=== PATIENT | female | born 1945 | race Caucasian/White ===

== ENCOUNTER → 2016-09-18 | Outpatient (CLI) | payer MEDICARE, OTHER | END | disposition home or self-care (01) | LOC: GMAM 11:04 | PROVIDERS: ATTEND Family Medicine | DX: E03.9 Hypothyroidism, unspecified (principal); I10 Essential (primary) hypertension; N39.0 Urinary tract infection, site not specified ==

== ENCOUNTER → 2016-09-29 | Outpatient (CLI) | payer MEDICARE, OTHER | END | disposition home or self-care (01) | LOC: GMAM 17:19 | PROVIDERS: ATTEND Family Medicine | DX: N39.0 Urinary tract infection, site not specified (principal) ==

== ENCOUNTER → 2016-10-12 | Outpatient (CLI) | payer MEDICARE, OTHER | END | disposition home or self-care (01) | LOC: GMAM 13:58 | PROVIDERS: ATTEND Family Medicine | DX: N39.0 Urinary tract infection, site not specified (principal) ==

== ENCOUNTER → 2017-06-29 | Outpatient (CLI) | payer MEDICARE, OTHER ==
--- NOTE | 2017-07-02 10:15 | MAM ---
EXAM DESCRIPTION: 3D Screening BILATERAL : Digital Mammography. CLINICAL HISTORY: 72 years Female SCREENING . No complaints. No family history breast cancer. Postmenopausal. Bilateral cyst aspiration. No HRT. COMPARISON: 2-D digital screening bilateral study 07/15/2015 and 05/22/2013. No prior reports available. Reports from prior examinations also reviewed. Report from prior examination also reviewed. TECHNIQUE: Bilateral CC and MLO projection full-field images, 3-D tomosynthesis digital mammographic technique. Also bilateral synthesized CC/ MLO full-field images. CAD not utilized. FINDINGS: The breast parenchymal density pattern is: Scattered areas of fibroglandular density. No skin thickening or nipple retraction bilateral solitary microcalcifications. Stable focal asymmetry in the lateral mid third of the left breast. No focal, stellate mass or density, focal asymmetry , and no suspicious microcalcifications bilaterally. Stable mammograms compared to prior study, taking into account differences in mammographic technique IMPRESSION: BI-RADS CATEGORY: 2 - BENIGN FINDINGS. FOLLOW UP: Routine digital bilateral screening, one year interval from June 2017. Written communication explaining the IMPRESSION and follow-up, will be mailed to the patient and referring health care provider. According to the [employer], yearly mammograms are recommended starting at age 40 and continuing as long as a woman is in good health. Any breast change noted on a breast self-exam should be reported promptly to the patient's healthcare provider. Breast MRI is recommended for women with an approximately 20-25% or greater lifetime risk of breast cancer, including women with a strong family history of breast or ovarian cancer and women who have been treated for Hodgkin's disease. A negative mammographic report should not delay tissue diagnosis in patients with significant clinical history or physical findings. Extremely dense breast tissue limits the sensitivity of digital mammography. Electronically signed by: Perez Elam MD 07/02/2017 10:14 AM PHYSICIAN/ALLERGY/IMMUNOLOGY
== END ==
LOC: MAMMO 15:21
PROVIDERS: ATTEND Family Medicine
DX: Z12.31 Encounter for screening mammogram for malignant neoplasm of breast (principal); N39.0 Urinary tract infection, site not specified; E03.9 Hypothyroidism, unspecified
CPT/HCPCS: 77063; 84439; 84443; 87086; G0202

== ENCOUNTER → 2017-10-26 | Outpatient (CLI) | payer MEDICARE, OTHER | END | disposition home or self-care (01) | LOC: GMAM 14:24 | PROVIDERS: ATTEND Family Medicine | DX: E03.9 Hypothyroidism, unspecified (principal) ==

== ENCOUNTER → 2017-11-02 | Outpatient (CLI) | payer MEDICARE, OTHER | END | disposition home or self-care (01) | LOC: GMAM 14:30 | PROVIDERS: ATTEND Family Medicine | DX: N39.0 Urinary tract infection, site not specified (principal) ==

== ENCOUNTER → 2018-06-30 | Outpatient (CLI) | payer MEDICARE, OTHER | LOC: GMAM 11:34 | PROVIDERS: ATTEND Family Medicine | DX: E03.9 Hypothyroidism, unspecified (principal) ==

== ENCOUNTER → 2018-07-05 | Outpatient (CLI) | payer MEDICARE, OTHER ==
--- NOTE | 2018-07-06 09:32 | US ---
EXAM DESCRIPTION: Pelvic,Non-OB CLINICAL HISTORY: 73 years Female, PELVIC PAIN COMPARISON: None. TECHNIQUE: Ultrasound of the pelvis was performed transabdominally. FINDINGS: The uterus is surgically absent. Right ovary measures 2.4 x 1.7 x 1.6 cm on the left ovary measures 1.9 x 1 x 1.9 cm. No evidence of free fluid. IMPRESSION: Uterus is surgically absent. Bilateral ovaries appear grossly normal. Electronically signed by: Arielle Toro MD 07/06/2018 9:31 AM [facility]
--- NOTE | 2018-07-06 16:32 | MAM ---
EXAM DESCRIPTION: 3D Screening BILATERAL : Digital Mammography. CLINICAL HISTORY: 73 years Female SCREEN . No complaints. No personal or family history of breast cancer. Childbirth. Postmenopausal 31 years. No HRT. Cyst aspiration right benign.. Lifetime risk of developing breast cancer (Tyrer-Cuzick model)(%): 4.1. COMPARISON: Bilateral screening digital breast tomosynthesis 06/29/2017.. TECHNIQUE: Bilateral CC and MLO projection full-field images, digital tomosynthesis mammographic technique. Bilateral digital 2-D full-field MLO images. CAD not available for tomosynthesis or 2-D images. FINDINGS: The breast parenchymal density pattern is: Scattered areas of fibroglandular density. No skin thickening or nipple retraction. Bilateral solitary microcalcifications. No new focal, stellate mass or density, focal asymmetry , and no suspicious microcalcifications bilaterally. Stable mammograms compared to prior study. IMPRESSION: Benign exam. BIRAD CATEGORY: 2 BENIGN FINDINGS. RECOMMENDATIONS: FOLLOW UP: Routine digital bilateral mammographic screening, one year interval from June 2018. Written communication explaining the IMPRESSION and follow-up, will be mailed to the patient and referring health care provider. According to the [employer], yearly mammograms are recommended starting at age 40 and continuing as long as a woman is in good health. Any breast change noted on a breast self-exam should be reported promptly to the patient's healthcare provider. Breast MRI is recommended for women with an approximately 20-25% or greater lifetime risk of breast cancer, including women with a strong family history of breast or ovarian cancer and women who have been treated for Hodgkin's disease. A negative mammographic report should not delay tissue diagnosis in patients with significant clinical history or physical findings. Extremely dense breast tissue limits the sensitivity of digital mammography. Electronically signed by: Perez Elam MD 07/06/2018 4:31 PM [employer]
== END ==
LOC: MAMMO 15:17
PROVIDERS: ATTEND Family Medicine
DX: Z12.31 Encounter for screening mammogram for malignant neoplasm of breast (principal); R10.2 Pelvic and perineal pain; Z90.710 Acquired absence of both cervix and uterus

== ENCOUNTER 2018-07-21 09:17 | Emergency (ER) | payer MEDICARE, OTHER ==
[2018-07-21 09:31] VITALS: TEMP 97.2
[2018-07-21] MEDS ORDERED: NITROGLYCERIN 2% 1 GM UD TOP ONE (09:37)
[2018-07-21] MEDS ORDERED: ASPIRIN (CHEWABLE) 81 MG TAB PO ONE (09:37)
--- NOTE | 2018-07-21 09:42 | ED.PDOC ---
History of Present Illness - General Chief Complaint: Chest Pain/LA Stated Complaint: chest pain Time Seen by Provider: 07/21/18 09:36 Source: patient Exam Limitations: no limitations - History of Present Illness Initial Comments: Patient presents with chest pain for one hour. It is mid-sternal with radiation to her back. It feels like someone is "pushing on" her. She has had multiple previous episodes that were diagnosed as esophageal spasm but this one was different because she felt it in her back. She usually takes nitroglycerin for the symptoms. No history of AMI. Had an echocardiogram in October 2017 that was normal. No first degree relatives with history of heart disease. No hyperlipidemia. Occasional gravity dependent bipedal edema. No history of tobacco use. No orthopnea. Denies nausea/vomiting. No other complaints. Last meal was last night. Timing/Duration: 1 hour Severity: moderate Improving Factors: nothing Worsening Factors: nothing Associated Symptoms: denies symptoms Allergies/Adverse Reactions: Allergies Penicillins Allergy (Verified 07/21/18 09:32) Hives Home Medications: Ambulatory Orders Trazodone HCl [Trazodone Hydrochloride] 300 mg PO HS 10/11/13 Isosorbide Mononitrate [Isosorbide Mononitrate ER] 120 mg PO DAILY 10/12/13 Hyoscyamine Sulfate [Anaspaz] 0.125 mg PO PRN 07/09/14 Levothyroxine Sodium [Tirosint] 50 mcg PO DAILY 07/09/14 Naproxen Sodium [Naprelan] 500 mg PO PRN 07/09/14 Nitroglycerin [Nitrostat] 0.4 mg SL PRN 07/09/14 Ondansetron [Zofran Odt] 4 mg PO PRN 07/09/14 Review of Systems - Review of Systems Constitutional: States: no symptoms reported EENTM: States: no symptoms reported Respiratory: States: no symptoms reported Cardiology: States: see HPI Gastrointestinal/Abdominal: States: see HPI Genitourinary: States: no symptoms reported Musculoskeletal: States: no symptoms reported Skin: States: no symptoms reported Neurological: States: no symptoms reported Endocrine: States: no symptoms reported Hematologic/Lymphatic: States: no symptoms reported Past Medical History (General) - Patient Medical History Hx Seizures: No Hx Stroke: No Hx Asthma: No Hx of COPD: No Hx Cardiac Disorders: Yes - hx heart murmur during childhood Hx Congestive Heart Failure: No Hx Pacemaker: No Hx Hypertension: Yes Hx Thyroid Disease: Yes Hx Diabetes: No Hx MRSA: No Surgical History: appendectomy, cholecystectomy, Hysterectomy - Vaccination History Hx Influenza Vaccination: Yes Hx Pneumococcal Vaccination: Yes - Social History Hx Alcohol Use: No Hx Substance Use: No Hx Physical Abuse: No Hx Emotional Abuse: No Family Medical History - Family History Mother Family History: Unknown Physical Exam - Physical Exam General Appearance: Alert Eye Exam: bilateral normal Ears, Nose, Throat: normal ENT inspection Neck: non-tender, full range of motion, supple Respiratory: lungs clear, normal breath sounds Cardiovascular/Chest: normal peripheral pulses, regular rate, rhythm, no edema Gastrointestinal/Abdominal: normal bowel sounds, non tender, soft Back Exam: normal inspection, no CVA tenderness Extremity: normal range of motion, non-tender, normal inspection Neurologic: no motor/sensory deficits, alert, normal mood/affect, oriented x 3 Skin Exam: normal color Lymphatic: no adenopathy Progress - Progress Progress: 07/21/18 12:21 Troponin x two were negative. EKG showed NSR with no ST changes nor T wave inversions. No LBBB. Patient was given an ASA 325 mg po x one and nitropaste to chest. Her symptoms improved. She said they usually improve with nitro. She is going to leave here and go back to Dr. Gomez's office to have her Reyes monitor read. Care instructions given. E.R. warnings given. Questions were elicited and answered. Patient voiced understanding and agreement with the plan. Departure - Departure Clinical Impression: Esophageal spasm, Chest pain Disposition: Discharge to Home or Self Care Departure Forms: ED Discharge - Pt. Copy, Patient Portal Self Enrollment Instructions: DI for Chest Pain Diet: resume usual diet Activity: increase activity as tolerated Referrals: Hong Gomez MD [Primary Care Provider] - 1-2 Weeks Home Medications: Ambulatory Orders Trazodone HCl [Trazodone Hydrochloride] 300 mg PO HS 10/11/13 Isosorbide Mononitrate [Isosorbide Mononitrate ER] 120 mg PO DAILY 10/12/13 Hyoscyamine Sulfate [Anaspaz] 0.125 mg PO PRN 07/09/14 Levothyroxine Sodium [Tirosint] 50 mcg PO DAILY 07/09/14 Naproxen Sodium [Naprelan] 500 mg PO PRN 07/09/14 Nitroglycerin [Nitrostat] 0.4 mg SL PRN 07/09/14 Ondansetron [Zofran Odt] 4 mg PO PRN 07/09/14 Additional Instructions: See your regular doctor today to complete your Reyes monitor studies. Return to the E.R. for worsening symptoms.
--- NOTE | 2018-07-21 10:09 | RAD ---
EXAM DESCRIPTION: Chest,1 View CLINICAL HISTORY: chest pain COMPARISON: Chest radiograph dated July 09, 2014 TECHNIQUE: Single upright portable frontal view of the chest FINDINGS: Cardiomediastinal silhouette and pulmonary vascularity are within normal limits. Lungs are clear without focal consolidations. Costophrenic angles are sharp. No pneumothorax. Visualized osseous structures show no destructive lesions. Included upper abdomen shows paucity of bowel gas. IMPRESSION: No radiographic evidence for acute cardiopulmonary process. Electronically signed by: Fabian Purcell MD 07/21/2018 10:08 AM [facility] [place]
[2018-07-21] MEDS ORDERED: SODIUM CHLORIDE 0.9% 1000ML 1,000 ML IVS ONE (10:26)
[2018-07-21 12:36] VITALS: BP 113/79; O2SAT 99
== END 2018-07-21 12:35 | disposition home or self-care (01) ==
LOC: ER 09:17
DX: R07.9 Chest pain, unspecified (principal); K22.4 Dyskinesia of esophagus; I10 Essential (primary) hypertension; E07.9 Disorder of thyroid, unspecified; Z88.0 Allergy status to penicillin; Z79.899 Other long term (current) drug therapy
CPT/HCPCS: 36415; 71045; 80053; 82550; 82553; 83880; 84484; 85025; 85610; 85730; 93005; J7030

== ENCOUNTER → 2019-01-09 | Outpatient (CLI) | payer MEDICARE, OTHER | LOC: GMAM 11:25 | PROVIDERS: ATTEND Family Medicine | DX: E03.9 Hypothyroidism, unspecified (principal); I10 Essential (primary) hypertension; R73.9 Hyperglycemia, unspecified ==

== ENCOUNTER → 2019-03-07 | Outpatient (CLI) | payer MEDICARE, OTHER | LOC: GMAM 14:14 | PROVIDERS: ATTEND Family Medicine | DX: R51 Headache (principal); I10 Essential (primary) hypertension ==

== ENCOUNTER → 2019-03-13 | Outpatient (CLI) | payer MEDICARE, OTHER ==
--- NOTE | 2019-03-13 14:02 | US ---
EXAM DESCRIPTION: Soft Tissue,Abdomen: ULTRASOUND. CLINICAL HISTORY: LUMP. Left side of lower back. COMPARISON: None. TECHNIQUE: Transcutaneous scanning: Tyler-scale and Doppler modes. FINDINGS: Scanning of the left side of the lower back. Uniform hypoechoic object in the adipose layer of subcutaneous tissue measuring 2.6 x 1.8 x 0.61 cm. Nonvascular on Doppler. A second probable object in the nearby adipose subcutaneous tissues measures 2.0 x 0.8 x 0.8 cm. Nonvascular. No dominant solid mass. No distinct cyst. No parenchymal edema. No large calcifications. IMPRESSION: 2 lipomas in the left side of the lower back which are palpable with greatest dimension 2.6 cm and 2.0 cm. Uncomplicated appearance. Electronically signed by: Perez Elam MD 03/13/2019 2:01 PM CDT
== END ==
LOC: US 09:43
PROVIDERS: ATTEND Family Medicine
DX: D17.1 Benign lipomatous neoplasm of skin and subcutaneous tissue of trunk (principal)

== ENCOUNTER → 2019-03-15 | Outpatient (CLI) | payer MEDICARE, OTHER ==
--- NOTE | 2019-03-15 19:49 | MRI ---
EXAM DESCRIPTION: Lumbar Spine w/o Contrast : Magnetic Resonance Imaging. CLINICAL HISTORY: RADICULOPATHY LUMBAR REGION COMPARISON: Radiographs lumbar spine March 07 2017. TECHNIQUE: Multiplanar, multiple standard sequences, non contrast MRI, lumbar spine. FINDINGS: L5-S1: The disc is well visualized on axial T2 series 501, image 3. Minimal disc desiccation, with no significant bulging, hyperintense T2 annular fissures the posterior disc margin abutting the bilateral foramina. Disc space maintained; minimal concavities of the central endplates. Moderate to severe narrowing of the left foramen with the disc abutting the L5 nerve root. Bilateral mild facet arthrosis and flavum ligament thickening. AP canal diameter 13 mm. Moderate narrowing of the right foramen. L4-L5: Concave endplates with disc space maintained and minimal disc desiccation. Tiny posterior bulge. Bilateral annular fissures in the disc abutting the foramina. Facet arthrosis and ligament thickening with AP canal diameter 12 mm. Moderate right foraminal narrowing. Moderate to severe left foraminal narrowing. Circumscribed hyperintense T1 and T2 signal in the left L4 pedicle lamina junction consistent with a hemangioma. L3-L4: Disc space maintained with concave endplates. No disc bulge. Disc desiccation with annular fissure abutting the left foramen. Arthrosis of the facet with hypertrophy and thickening of the ligament; AP canal diameter 13 mm. Mild bilateral foraminal narrowing. L2-L3: Normal signal in the disc with concavities of endplates. Disc space maintained with no bulging. Mild bilateral facet hypertrophic arthrosis and ligament thickening. AP canal diameter 14 mm. Mild bilateral foraminal narrowing. L1-L2: Normal signal in the disc with disc space maintained. Tiny posterior bulge. Posterior elements unremarkable. Canal and foramina are patent. T12-L1: Minimal desiccation of the disc with disc space maintained. Conus terminates at this level. Posterior elements unremarkable. Canal and foramina are patent. No scoliosis. Paravertebral soft tissues unremarkable.. Cord normal signal and caliber. Otherwise normal marrow signal in the remaining vertebral bodies and the posterior elements. Vertebral bodies are not compressed at any level. IMPRESSION: 1. Multiple levels of endplate concavities from L5-S1 to L2-L3. Mild desiccation and bulging of the disc. Multiple levels of hypertrophic facet arthrosis and flavum ligament thickening. 2. L5-S1 disc desiccation. Bilateral annular fissures in the foramina. Moderate to severe narrowing of the left foramen by bone and disc encroachment on the L5 nerve. Moderate canal narrowing. Correlate for radiculopathy. 3. L4-5 disc desiccation with bilateral annular fissures in the foramina. Moderate canal narrowing. Moderate to severe left foraminal narrowing with facet abutting the left L4 nerve. Correlate for radiculopathy. 4. L3-4 disc desiccation with annular fissure abutting the left foramen. Moderate canal narrowing and mild bilateral foraminal narrowing.. Electronically signed by: Perez Elam MD 03/15/2019 7:48 PM CDT
== END ==
LOC: MRI 11:00
PROVIDERS: ATTEND Family Medicine
DX: M51.16 Intervertebral disc disorders with radiculopathy, lumbar region (principal); M51.17 Intervertebral disc disorders with radiculopathy, lumbosacral region; R51 Headache; R22.2 Localized swelling, mass and lump, trunk

== ENCOUNTER → 2019-03-17 | Outpatient (CLI) | payer MEDICARE, OTHER ==
--- NOTE | 2019-03-17 13:02 | MRI ---
EXAM DESCRIPTION: MRI Brain w/oContrast CLINICAL HISTORY: HEADACHE COMPARISON: None available TECHNIQUE: Non contrast MRI of the brain is performed according to our usual protocol including multiplanar multi sequence technique. FINDINGS: Sagittal T1 images show intact corpus callosum. Normal pituitary gland with normal T1 appearance of the gabby and medulla and upper cervical cord. Normal signal intensity within the clivus and calvarium. Axial T2 fat sat images reveal preservation of intracranial vascular flow voids. Normal niño matter T2 signal intensity. Multifocal white matter hyperintensity. Prominent ventricles and sulci are consistent with age-related cerebral volume loss. The globes appear intact and symmetrical. No abnormal fluid signal in the paranasal sinuses, tympanic cavities or mastoid air cells. Axial flair images show multiple foci of increased signal intensity in the central and subcortical white matter both cerebral hemispheres. Old basal ganglia lacunar infarcts. Diffusion weighted images are negative for focal intense increased signal intensity in the brain parenchyma to suggest restricted diffusion. ADC mapping is negative. Axial T1 images show normal niño-white matter differentiation. No high signal intensity hemorrhagic lesion of the brain parenchyma. No subdural hematoma. Axial susceptibility weighted images are negative for focal signal loss to suggest abnormal brain parenchymal calcification or hemosiderin deposition. IMPRESSION: No acute intracranial pathologic process. Electronically signed by: Manpreet Cruz MD 03/17/2019 1:00 PM CDT
== END ==
LOC: MRI 11:13
PROVIDERS: ATTEND Family Medicine
DX: M54.16 Radiculopathy, lumbar region (principal); R51 Headache; R22.2 Localized swelling, mass and lump, trunk

== ENCOUNTER → 2019-07-12 | Outpatient (CLI) | payer MEDICARE, OTHER ==
--- NOTE | 2019-07-14 15:28 | MAM ---
EXAM DESCRIPTION: 3D Screening BILATERAL : Digital Mammography. CLINICAL HISTORY: 74 years Female SCREEN . No complaints. No personal or family history of breast cancer. Menarche age 13. Childbirth age 22. Menopausal age 41. No HRT. Bilateral benign cyst aspirations. Lifetime risk of developing breast cancer (Tyrer-Cuzick model)(%): 5.0. COMPARISON: Bilateral screening digital breast tomosynthesis June 2018 and June 2017. TECHNIQUE: Bilateral CC and MLO projection full-field images, digital tomosynthesis mammographic technique. Bilateral digital 2-D full-field MLO images. CAD not available for tomosynthesis or 2-D images. FINDINGS: The breast parenchymal density pattern is: Scattered areas of fibroglandular density. No skin thickening or nipple retraction. Multiple mole markers left breast. Bilateral solitary microcalcifications. Bilateral vascular calcifications. Dense focal asymmetry middle third left breast seen only on MLO projections and stable. No new focal, stellate mass or density, focal asymmetry , and no suspicious microcalcifications bilaterally. Stable mammograms compared to prior study. IMPRESSION: Benign exam. BIRAD CATEGORY: 2 BENIGN FINDINGS. RECOMMENDATIONS: FOLLOW UP: Routine digital bilateral mammographic screening, one year interval from June 2019. Written communication explaining the IMPRESSION and follow-up, will be mailed to the patient and referring health care provider. According to the [employer], yearly mammograms are recommended starting at age 40 and continuing as long as a woman is in good health. Any breast change noted on a breast self-exam should be reported promptly to the patient's healthcare provider. Breast MRI is recommended for women with an approximately 20-25% or greater lifetime risk of breast cancer, including women with a strong family history of breast or ovarian cancer and women who have been treated for Hodgkin's disease. A negative mammographic report should not delay tissue diagnosis in patients with significant clinical history or physical findings. Extremely dense breast tissue limits the sensitivity of digital mammography. Electronically signed by: Perez Elam MD 07/14/2019 3:26 PM [employer]
== END ==
LOC: MAMMO 10:40
PROVIDERS: ATTEND Family Medicine
DX: Z12.31 Encounter for screening mammogram for malignant neoplasm of breast (principal); E03.9 Hypothyroidism, unspecified; I10 Essential (primary) hypertension